=== PATIENT | male | born 1965 | race Caucasian/White ===

== ENCOUNTER 2020-06-12 | Emergency (ER) | payer SELFPAY ==
[~2020-06-12] MED LIST: FLEXERIL OR; METHADONE40 MG OR; MOTRIN800 MG OR; TRAMADOL HCL50 MG OR; TYLENOL500 MG OR; VICODIN1 TAB OR
[2020-06-12 16:51] LABS: GFR > 60 ML/MIN (>=60 (CALC)); GFR FOR AFR.AMER. > 60 ML/MIN (>=60 (CALC))
[2020-06-12 16:52] LABS: HEMOGLOBIN 11.3 g/dl (14.0-18.0); IMMATURE GRANULOCYTES 0.4 % (0.0-5.0); MEAN CELL VOLUME 89.7 fL CALC (80.0-100.0); MEAN CORPUSCULAR HGB 29.8 pG CALC (26.0-32.0); MEAN CORPUSCULAR HGB CONC 33.2 g/dL CAL (32.0-36.0); NEUT# 12.18 thou/uL (1.82-7.42); RED BLOOD COUNT 3.79 mill/uL (4.70-6.10); RED CELL DISTRI WIDTH 12.8 % (11.5-15.5)
[2020-06-12 17:05] LABS: ALKALINE PHOSPHATASE 162 u/l (38-126); BUN 18 mg/dL (9-20); BUN/CREATININE RATIO 30 (12-20 (CALC)); CARBON DIOXIDE 25 mmol/l (22-30); CHLORIDE 100 mmol/l (95-108); CREATININE 0.6 mg/dL (0.7-1.3); ETHYL ALCOHOL 0 mg/dl (0-30); GFR > 60 ML/MIN (>=60 (CALC)); GFR FOR AFR.AMER. > 60 ML/MIN (>=60 (CALC)); LIPASE 20 u/l (23-300); MAGNESIUM 1.1 mg/dL (1.6-2.3); POTASSIUM 4.3 mmol/l (3.5-5.1)
[2020-06-12 17:08] LABS: INTERNATIONAL NORMALIZED RATIO 1.6 RATIO (0.7-1.3); PROTHROMBIN TIME 16.3 SECONDS (9.0-12.5)
[2020-06-12 17:14] LABS: ALBUMIN 3.4 g/dL (3.2-5.0); ANION GAP 13 (6-22 (CALC)); BILIRUBIN, TOTAL 3.1 mg/dL (0.0-1.4); SGOT/AST 743 u/l (17-59); SODIUM 134 mmol/l (137-146); TOTAL PROTEIN 5.8 g/dL (6.3-8.2)
[2020-06-12 17:35] LABS: TSH, 3RD GENERATION 0.26 uIU/mL (0.47 - 4.68)
[2020-06-12] MEDS ORDERED: GABAPENTIN100 MG PO (17:59)
[2020-06-12 18:13] LABS: URINE BLOOD DIPSTICK NEGATIVE (NEGATIVE); URINE COLOR YELLOW; URINE GLUCOSE - DIPSTICK >=1000 mg/dL (NEGATIVE); URINE KETONE 40 mg/dL (NEGATIVE); URINE LEUK ESTERASE NEGATIVE (NEGATIVE); URINE PROTEIN - DIPSTICK NEGATIVE (NEG-TRACE); URINE SPECIFIC GRAVITY 1.015; URINE UROBILINOGEN - DIPSTICK 0.2 E.U./dL (0.2)
[2020-06-12 18:14] LABS: URINE BILIRUBIN - DIPSTICK SMALL (NEGATIVE); URINE NITRITE - DIPSTICK NEGATIVE (Negative)
== END 2020-06-13 00:25 | disposition short-term general hospital (02) | DRG 947 ==
PROVIDERS: Family Medicine
DX: R41.82 Altered mental status, unspecified (principal); J18.9 Pneumonia, unspecified organism; R74.01 Elevation of levels of liver transaminase levels; R10.11 Right upper quadrant pain; R10.31 Right lower quadrant pain; R58 Hemorrhage, not elsewhere classified; F10.10 Alcohol abuse, uncomplicated; E11.9 Type 2 diabetes mellitus without complications; J44.9 Chronic obstructive pulmonary disease, unspecified; F17.200 Nicotine dependence, unspecified, uncomplicated; Z20.822 Contact with and (suspected) exposure to COVID-19
CPT/HCPCS: J2060; J2354; Q9967; S0164

== ENCOUNTER 2020-09-18 10:21 | Emergency (ER) | payer OTHER ==
[~2020-09-18 10:21] MED LIST changes: +GABAPENTIN100 MG PO
[2020-09-18 12:15] VITALS: BP 129/77
== END 2020-09-18 12:21 | disposition home or self-care (01) | DRG 639 ==
LOC: ED 10:21
DX: E11.65 Type 2 diabetes mellitus with hyperglycemia (principal); J44.9 Chronic obstructive pulmonary disease, unspecified; F17.200 Nicotine dependence, unspecified, uncomplicated

== ENCOUNTER 2020-10-27 19:19 | Emergency (ER) | payer OTHER ==
[~2020-10-27] VITALS: Ht 175.3 cm; Wt 75.0 kg
[2020-10-27 21:00] LABS: IMMATURE GRANULOCYTES 0.3 % (0.0-5.0); MEAN CELL VOLUME 87.6 fL CALC (80.0-100.0); MEAN CORPUSCULAR HGB 29.6 pG CALC (26.0-32.0); MEAN CORPUSCULAR HGB CONC 33.8 g/dL CAL (32.0-36.0); NEUT# 4.59 thou/uL (1.82-7.42); RED BLOOD COUNT 5.23 mill/uL (4.70-6.10); RED CELL DISTRI WIDTH 14.9 % (11.5-15.5)
[2020-10-27 21:04] LABS: HEMATOCRIT 45.8 % (39.0-50.0); HEMOGLOBIN 15.5 g/dl (14.0-18.0)
[2020-10-27 21:13] LABS: BUN 10 mg/dL (9-20); BUN/CREATININE RATIO 16 (12-20 (CALC)); CHLORIDE 108 mmol/l (95-108); CREATININE 0.6 mg/dL (0.7-1.3); GFR > 60 ML/MIN (>=60 (CALC)); GFR FOR AFR.AMER. > 60 ML/MIN (>=60 (CALC)); POTASSIUM 4.1 mmol/l (3.5-5.1); TOTAL PROTEIN 6.8 g/dL (6.3-8.2)
[2020-10-27 21:19] LABS: ALBUMIN 4.2 g/dL (3.2-5.0); ALKALINE PHOSPHATASE 60 u/l (38-126); ANION GAP 24 (6-22 (CALC)); BILIRUBIN, TOTAL 0.3 mg/dL (0.0-1.4); CARBON DIOXIDE 14 mmol/l (22-30); SGOT/AST 27 u/l (17-59); SODIUM 142 mmol/l (137-146)
[2020-10-27 21:24] LABS: MYOGLOBIN 43 ng/mL (0 - 121)
[2020-10-28 05:55] LABS: URINE BILIRUBIN - DIPSTICK NEGATIVE (NEGATIVE); URINE BLOOD DIPSTICK NEGATIVE (NEGATIVE); URINE COLOR YELLOW; URINE GLUCOSE - DIPSTICK 250 mg/dL (NEGATIVE); URINE KETONE 15 mg/dL (NEGATIVE); URINE LEUK ESTERASE NEGATIVE (NEGATIVE); URINE PH 5.5 (4.5-8.0); URINE PROTEIN - DIPSTICK NEGATIVE (NEG-TRACE); URINE SPECIFIC GRAVITY 1.025; URINE UROBILINOGEN - DIPSTICK 0.2 E.U./dL (0.2)
[2020-10-28 05:56] LABS: URINE NITRITE - DIPSTICK NEGATIVE (Negative)
[2020-10-28 15:24] VITALS: BP 141/70
== END 2020-10-28 15:24 | disposition home or self-care (01) ==
LOC: ED 19:19
PROVIDERS: Emergency Medicine
DX: E11.649 Type 2 diabetes mellitus with hypoglycemia without coma (principal); M54.5 Low back pain; J44.9 Chronic obstructive pulmonary disease, unspecified; F17.200 Nicotine dependence, unspecified, uncomplicated

== ENCOUNTER 2020-11-03 15:00 | Emergency (ER) | payer OTHER ==
[~2020-11-03] VITALS: Ht 175.3 cm; Wt 70.0 kg
[2020-11-03] MEDS ORDERED: METFORMIN500 M2 PO (16:11)
[2020-11-03] MEDS ORDERED: PERCOCET 10/31 COMBO PO (16:11)
[2020-11-03 16:26] LABS: IMMATURE GRANULOCYTES 0.1 % (0.0-5.0); MEAN CELL VOLUME 88.8 fL CALC (80.0-100.0); MEAN CORPUSCULAR HGB 30.3 pG CALC (26.0-32.0); MEAN CORPUSCULAR HGB CONC 34.1 g/dL CAL (32.0-36.0); NEUT# 4.69 thou/uL (1.82-7.42); RED BLOOD COUNT 4.36 mill/uL (4.70-6.10); RED CELL DISTRI WIDTH 14.4 % (11.5-15.5)
[2020-11-03 16:28] LABS: HEMATOCRIT 38.7 % (39.0-50.0); HEMOGLOBIN 13.2 g/dl (14.0-18.0)
[2020-11-03 16:32] VITALS: BP 134/61
[2020-11-03 16:46] LABS: ALBUMIN 3.8 g/dL (3.2-5.0); BUN 11 mg/dL (9-20); BUN/CREATININE RATIO 19 (12-20 (CALC)); CHLORIDE 98 mmol/l (95-108); CREATININE 0.6 mg/dL (0.7-1.3); GFR > 60 ML/MIN (>=60 (CALC)); GFR FOR AFR.AMER. > 60 ML/MIN (>=60 (CALC)); POTASSIUM 4.7 mmol/l (3.5-5.1); SGOT/AST 31 u/l (17-59); TOTAL PROTEIN 6.5 g/dL (6.3-8.2)
[2020-11-03 16:52] LABS: ALKALINE PHOSPHATASE 125 u/l (38-126); ANION GAP 13 (6-22 (CALC)); BILIRUBIN, TOTAL 0.6 mg/dL (0.0-1.4); CARBON DIOXIDE 25 mmol/l (22-30); SODIUM 131 mmol/l (137-146)
[2020-11-03] MEDS ORDERED: IBUPROFEN600 MG PO (18:09)
== END 2020-11-03 18:43 | disposition home or self-care (01) ==
LOC: ED 15:00
PROVIDERS: Family Medicine
DX: M25.552 Pain in left hip (principal); R07.9 Chest pain, unspecified; I10 Essential (primary) hypertension; E11.9 Type 2 diabetes mellitus without complications; J44.9 Chronic obstructive pulmonary disease, unspecified; F17.200 Nicotine dependence, unspecified, uncomplicated; Z79.84 Long term (current) use of oral hypoglycemic drugs